=== PATIENT | female | born 2000 | race Hispanic/Latino ===

== ENCOUNTER 2020-04-03 10:32 | Outpatient (CLI) | payer MEDICAID ==
--- NOTE | 2020-04-03 11:32 | ULT ---
ULTRASOUND LEFT BREAST: INDICATION: Mastodynia. Left axilla was imaged along with workforce services representative images of the outer left breast at 1, 2, 3, 4, and 5 o'clock positions. No sonographic abnormality. No cyst or solid nodule seen. IMPRESSION: Ultrasound findings of BIRADS 1: Negative. POS: OFF
== END 2020-04-03 10:33 | disposition home or self-care (01) ==
LOC: BICULT 10:32
PROVIDERS: ATTEND Obstetrics & Gynecology
DX: N64.4 Mastodynia (principal)